=== PATIENT | female | born 1950 | race Caucasian/White ===

== ENCOUNTER → 2017-08-19 | Outpatient (CLI) | payer MEDICARE, OTHER | END | disposition home or self-care (01) | LOC: LAB.O 10:27 | PROVIDERS: ATTEND Nurse Practitioner Family | DX: E03.9 Hypothyroidism, unspecified (principal); I10 Essential (primary) hypertension; E78.2 Mixed hyperlipidemia ==

== ENCOUNTER → 2018-02-14 | Outpatient (CLI) | payer MEDICARE, OTHER | LOC: YCFC.O 11:25 | PROVIDERS: ATTEND Nurse Practitioner Family | DX: E03.9 Hypothyroidism, unspecified (principal); I10 Essential (primary) hypertension; E78.2 Mixed hyperlipidemia ==

== ENCOUNTER → 2018-08-15 | Outpatient (CLI) | payer MEDICARE, OTHER | LOC: LAB.O 14:08 | PROVIDERS: ATTEND Nurse Practitioner Family | DX: I10 Essential (primary) hypertension (principal); E78.2 Mixed hyperlipidemia; E55.9 Vitamin D deficiency, unspecified; R53.83 Other fatigue ==

== ENCOUNTER 2018-10-11 17:59 | Emergency (ER) | payer MEDICARE, OTHER ==
[2018-10-11 18:18] VITALS: TEMP 97.4
--- NOTE | 2018-10-11 18:20 | ED.PDOC ---
History of Present Illness - General Chief Complaint: Trauma Stated Complaint: s/p fall Time Seen by Provider: 10/11/18 18:17 Source: patient - History of Present Illness Initial Comments: SHE TOOK HER HER TRASH OUTSIDE AND SLIPPED AND FELL. NO LOC BUT HE INJURED HER HEAD, HAS SOME SEEPING OF BLOOD FROM A SCALP INJURY. SHE TAKES NO BLOOD THINNERS. Timing/Duration: 1 hour Severity: moderate Improving Factors: nothing Worsening Factors: nothing Associated Symptoms: denies symptoms Allergies/Adverse Reactions: Allergies NO KNOWN ALLERGY Allergy (Verified 10/11/18 18:21) Home Medications: Ambulatory Orders Unobtainable 10/11/18 Review of Systems - Review of Systems Constitutional: States: no symptoms reported EENTM: States: no symptoms reported Respiratory: States: no symptoms reported Cardiology: States: no symptoms reported Gastrointestinal/Abdominal: States: no symptoms reported Genitourinary: States: no symptoms reported Musculoskeletal: States: no symptoms reported Skin: States: other - SCALP INJURY Neurological: States: no symptoms reported Endocrine: States: no symptoms reported Hematologic/Lymphatic: States: no symptoms reported Past Medical History (General) - Patient Medical History Hx Stroke: No Hx Congestive Heart Failure: No Hx Hypertension: Yes Hx Diabetes: No Hx Cancer: Yes - Breast - Vaccination History Hx Influenza Vaccination: No Hx Pneumococcal Vaccination: Yes - Social History Hx Tobacco Use: No Family Medical History - Family History Mother Family History: Unknown Living Status: Unknown Physical Exam - Physical Exam General Appearance: Alert, Anxious, Well Developed, Well Groomed, Well Hydrated, Well Nourished Eye Exam: bilateral normal Ears, Nose, Throat: normal ENT inspection Neck: supple Respiratory: chest non-tender Cardiovascular/Chest: normal peripheral pulses, regular rate, rhythm, no edema, no gallop, no JVD, no murmur Peripheral Pulses: radial,right: 2+, radial,left: 2+ Gastrointestinal/Abdominal: normal bowel sounds, non tender, soft, no organomegaly, no pulsatile mass Rectal Exam: deferred Back Exam: normal inspection, no CVA tenderness, no vertebral tenderness Extremity: normal range of motion, non-tender, normal inspection Skin Exam: rash - HEMATOMA TO THE OCCIPUT Progress - Results/Orders Results/Orders: CT OF THE CERVICAL SPINE AND THE CT OF THE HEAD ARE NEGATIVE PER RADIOLOGIST. Departure - Departure Clinical Impression: Closed head injury Qualifiers: Encounter type: initial encounter Qualified Code(s): S09.90XA - Unspecified injury of head, initial encounter Repetitive strain injury of cervical spine Qualifiers: Encounter type: initial encounter Qualified Code(s): S16.1XXA - Strain of muscle, fascia and tendon at neck level, initial encounter Time of Disposition: 19:21 Disposition: Discharge to Home or Self Care Condition: Good Departure Forms: ED Discharge - Pt. Copy, Patient Portal Self Enrollment Instructions: DI for Trauma Diet: resume usual diet Referrals: Hailey Cannon NP [Primary Care Provider] - 1-2 Weeks Home Medications: Ambulatory Orders Unobtainable 10/11/18 Additional Instructions: TYLENOL NEEDED
--- NOTE | 2018-10-11 19:12 | CT ---
EXAM DESCRIPTION: CT CERVICAL SPINE CLINICAL HISTORY: HEAD AND NCK INJURY COMPARISON: None Available. TECHNIQUE: Contiguous axial images of the cervical spine were obtained followed by reconstruction images.This exam was performed according to our departmental dose-optimization program, which includes automated exposure control, adjustment of the mA and/or kV according to patient size and/or use of iterative reconstruction technique. FINDINGS: There are mild degenerative changes. There is no acute fracture or subluxation. The prevertebral soft tissues are within normal limits. IMPRESSION: No acute fracture or subluxation. Electronically signed by: Og Bunn 10/11/2018 7:10 PM [facility]
--- NOTE | 2018-10-11 19:14 | CT ---
EXAM DESCRIPTION: Head CLINICAL HISTORY: HEAD AND NCK INJURY COMPARISON: None Available TECHNIQUE: Contiguous axial CT images of the head were obtained. Coronal and sagittal reconstructions were created from the axial data. This exam was performed according to our departmental dose-optimization program, which includes automated exposure control, adjustment of the mA and/or kV according to patient size and/or use of iterative reconstruction technique. FINDINGS: Poorly defined foci of decreased attenuation do not exert significant mass effect on surrounding structures and are likely sequela of prior insult, most likely on the basis of small vessel disease. There is no evidence of acute mass, mass effect, midline shift or hemorrhage. The ventricles and extra-axial CSF spaces are unremarkable. The brain parenchyma appears otherwise normal for the patient's age. No acute abnormalities of the bones is seen. IMPRESSION: No acute intracranial abnormality. Electronically signed by: Og Bunn 10/11/2018 7:13 PM [facility]
[2018-10-11] MEDS ORDERED: cloNIDine HCL 0.1 MG TAB PO ONE (19:31)
[2018-10-11 20:14] VITALS: O2SAT 96
[2018-10-11 21:39] VITALS: BP 132/70
== END 2018-10-11 21:39 | disposition home or self-care (01) ==
LOC: ER 17:59
DX: S09.90XA Unspecified injury of head, initial encounter (principal); S16.1XXA Strain of muscle, fascia and tendon at neck level, initial encounter; S00.93XA Contusion of unspecified part of head, initial encounter; R21 Rash and other nonspecific skin eruption; I10 Essential (primary) hypertension; Z85.3 Personal history of malignant neoplasm of breast; W01.0XXA Fall on same level from slipping, tripping and stumbling without subsequent striking against object, initial encounter; Y93.89 Activity, other specified; Y92.89 Other specified places as the place of occurrence of the external cause

== ENCOUNTER → 2018-10-23 | Outpatient (CLI) | payer MEDICARE, OTHER | LOC: YCFC.O 15:44 | PROVIDERS: ATTEND Nurse Practitioner Family | DX: R50.9 Fever, unspecified (principal) ==

== ENCOUNTER 2019-02-13 09:25 | Emergency (ER) | payer MEDICARE, OTHER ==
--- NOTE | 2019-02-13 09:36 | ED.PDOC ---
History of Present Illness - General Chief Complaint: General Stated Complaint: cough /body aches Time Seen by Provider: 02/13/19 09:32 Source: patient Exam Limitations: no limitations - History of Present Illness Initial Comments: Camille Eisenberg 68 y/o female came to ER with non productive cough for the last one week and the last 2 days chest hurts during coughing episodes and with generalized body aches.Had seen primary Md 3 days was prescribed antibotics took it stating not better. Timing/Duration: 1 week Severity: moderate Improving Factors: nothing Worsening Factors: nothing Associated Symptoms: other - see hpi Allergies/Adverse Reactions: Allergies NO KNOWN ALLERGY Allergy (Verified 02/13/19 09:40) Home Medications: Ambulatory Orders Benzonatate Perles [Tessalon Perles] 200 mg PO BID #30 cap 02/13/19 Cefuroxime Axetil [Ceftin] 500 mg PO Q12H 5 Days #10 tablet 02/13/19 Metoprolol Succinate [Toprol Xl] 50 mg PO BID 02/13/19 Review of Systems - Review of Systems Constitutional: States: malaise EENTM: States: no symptoms reported Respiratory: States: see HPI Cardiology: States: no symptoms reported Gastrointestinal/Abdominal: States: no symptoms reported Genitourinary: States: no symptoms reported Skin: States: no symptoms reported Neurological: States: no symptoms reported Endocrine: States: no symptoms reported All other Systems: Reviewed and Negative, No Change from Baseline Past Medical History (General) - Patient Medical History Hx Stroke: No Hx Congestive Heart Failure: No Hx Hypertension: Yes Hx Diabetes: No Hx Cancer: Yes - Breast Surgical History: other - left mastectomy - Vaccination History Hx Influenza Vaccination: No Hx Pneumococcal Vaccination: Yes - Social History Hx Tobacco Use: No Family Medical History - Family History Mother Family History: Unknown Living Status: Unknown Hx Cardiac Disease: Yes - dad Father Hx Family Stroke: Yes Hx Cardiac Disease: Yes Physical Exam - Physical Exam General Appearance: Alert, Comfortable, No apparent distress Eye Exam: bilateral normal Ears, Nose, Throat: hearing grossly normal, normal ENT inspection Neck: non-tender, full range of motion, supple, normal inspection Respiratory: chest non-tender, decreased breath sounds, wheezing Cardiovascular/Chest: normal peripheral pulses, regular rate, rhythm, no murmur Peripheral Pulses: radial,right: 2+, radial,left: 2+ Gastrointestinal/Abdominal: normal bowel sounds, non tender, soft, no organomegaly Extremity: no pedal edema, no calf tenderness Neurologic: alert, oriented x 3 Skin Exam: normal color, warm/dry Lymphatic: no adenopathy Progress - Progress Progress: 02/13/19 12:31 Vital Signs - 8 hr 02/13/19 02/13/19 02/13/19 09:36 09:41 10:36 Temperature 99.4 F Pulse Rate Pulse Rate [R 73 73 74 finger] Respiratory 18 18 18 Rate Blood Pressure 200/92 194/106 [R arm] O2 Sat by Pulse 94 L 99 Oximetry 02/13/19 02/13/19 02/13/19 11:43 12:00 12:28 Temperature Pulse Rate 71 Pulse Rate [R 65 68 finger] Respiratory 18 15 20 Rate Blood Pressure 188/92 197/90 [R arm] O2 Sat by Pulse 95 95 99 Oximetry - Results/Orders Results/Orders: 02/13/19 09:55 SVN/Updraft Therapy .PRN 02/13/19 09:56 SVN/Updraft Therapy .ONCE 02/14/19 09:00 [facility] Daily Laboratory Results - last 24 hr 02/13/19 02/13/19 02/13/19 10:13 10:13 11:36 WBC 6.9 RBC 4.36 Hgb 14.2 Hct 42.5 MCV 97.3 MCH 32.6 H MCHC 33.5 RDW 13.8 Plt Count 201 MPV 7.2 L Absolute Neuts (auto) 4.20 Absolute Lymphs (auto) 2.00 Absolute Monos (auto) 0.70 Absolute Eos (auto) 0.10 Absolute Basos (auto) 0.00 Neutrophils % 60.8 Lymphocytes % 28.2 Monocytes % 9.6 H Eosinophils % 1.1 Basophils % 0.3 PT 12.6 H INR 1.26 H PTT (SP) 26.3 Sodium 138 Potassium 3.6 Chloride 103 Carbon Dioxide 25 Anion Gap 13.6 BUN 9 Creatinine 0.71 BUN/Creatinine Ratio 12.7 Random Glucose 107 H Serum Osmolality 274.8 L Calcium 8.9 Magnesium 1.9 Total Bilirubin 0.9 Direct Bilirubin 0.2 Indirect Bilirubin 0.7 AST 21 ALT 12 Alkaline Phosphatase 53 Creatine Kinase 33 CK-MB (CK-2) 0.5 CK-MB (CK-2) % Not Reportable Troponin I < 0.02 Serum Total Protein 7.7 Albumin 3.8 Urine Color Yellow Urine Appearance Clear Urine pH 7.5 Ur Specific [place] 1.020 Urine Protein Negative Urine Glucose (UA) Negative Urine Ketones Negative Urine Blood Trace-intact H Urine Nitrite Negative Urine Bilirubin Negative Urine Urobilinogen 0.2 Ur Leukocyte Esterase Negative Urine RBC 0 Urine WBC 0 Ur Epithelial Cells 0-1 Urine Bacteria 0 Group A Strep Rapid Positive Discuss all test result with patient - EKG/XRAY/CT XRAY: chest - no acute abnormalities Departure - Departure Clinical Impression: Malaise and fatigue, Strep throat Upper respiratory infection Qualifiers: URI type: unspecified URI Qualified Code(s): J06.9 - Acute upper respiratory infection, unspecified Hypertension Qualifiers: Hypertension type: unspecified Qualified Code(s): I10 - Essential (primary) hypertension Time of Disposition: 13:11 Disposition: Discharge to Home or Self Care Condition: Fair Departure Forms: ED Discharge - Pt. Copy, Patient Portal Self Enrollment Instructions: Strep Throat (DC) Referrals: Hailey Cannon NP [Primary Care Provider] - 1-2 Weeks Prescriptions: Benzonatate Perles [Tessalon Perles] 200 mg PO BID #30 cap Cefuroxime Axetil [Ceftin] 500 mg PO Q12H 5 Days #10 tablet Home Medications: Ambulatory Orders Benzonatate Perles [Tessalon Perles] 200 mg PO BID #30 cap 02/13/19 Cefuroxime Axetil [Ceftin] 500 mg PO Q12H 5 Days #10 tablet 02/13/19 Metoprolol Succinate [Toprol Xl] 50 mg PO BID 02/13/19 Additional Instructions: Continue with all home medications;Follow up with primary Md 19 Feb 2019 for recheck as needed
[2019-02-13] MEDS ORDERED: SODIUM CHLORIDE 0.9% 500ML 500 ML IVS ONE (09:37)
[2019-02-13] MEDS ORDERED: KETOROLAC TROMETHAMINE INJ 30 MG/ML VIAL IV ONE (09:38)
[2019-02-13] MEDS ORDERED: IPRATROPIUM/ALBUTEROL 3 ML VIAL NEB ONE (09:55)
[2019-02-13] MEDS ORDERED: methylPREDNISolone SODIUM SUC 125 MG/2 ML VIAL IV ONE (09:55)
[2019-02-13] MEDS ORDERED: BENZONATATE PERLES 100 MG CAP PO ONE (09:58)
--- NOTE | 2019-02-13 10:00 | RAD ---
EXAM DESCRIPTION: Chest,1 View CLINICAL HISTORY: 68 years Female, cough COMPARISON: Previous study February 24, 2010 TECHNIQUE: AP portable chest. FINDINGS: Heart size is normal with normal pulmonary vascularity. Patient is status post left mastectomy. No consolidating infiltrate. No pulmonary mass or worrisome nodule. No pneumothorax or pleural effusion. Bones are unremarkable. IMPRESSION: No acute process is identified in the chest. Electronically signed by: Judson Thrasher MD 02/13/2019 9:58 AM CDT
[2019-02-13] MEDS ORDERED: METOPROLOL TARTRATE 50 MG TAB PO ONE (10:39)
[2019-02-13] MEDS ORDERED: cefTRIAXone SODIUM 1 GM VIAL IM ONE (12:34)
[2019-02-13] MEDS ORDERED: hydrALAZINE HCl 20 MG/ML VIAL IV ONE (12:34)
[2019-02-13] MEDS ORDERED: LIDOCAINE 1% 10 ML VIAL INJ ONE (12:43)
[2019-02-13 14:05] VITALS: BP 133/81; TEMP 98; O2SAT 93
== END 2019-02-13 14:05 | disposition home or self-care (01) ==
LOC: ER 09:25
DX: J02.0 Streptococcal pharyngitis (principal); J06.9 Acute upper respiratory infection, unspecified; I10 Essential (primary) hypertension; Z79.899 Other long term (current) drug therapy; Z85.3 Personal history of malignant neoplasm of breast
CPT/HCPCS: 36415; 71045; 80048; 80076; 81001; 82550; 82553; 84484; 85025; 85610; 85730; 87502; 87880; 94640; J0360; J0696; J1885; J2930; J7040; J7620

== ENCOUNTER → 2019-08-10 | Outpatient (CLI) | payer MEDICARE, OTHER | LOC: YCFC.O 11:12 | PROVIDERS: ATTEND Nurse Practitioner | DX: I10 Essential (primary) hypertension (principal); E03.9 Hypothyroidism, unspecified; E78.5 Hyperlipidemia, unspecified ==

== ENCOUNTER → 2019-11-30 | Outpatient (CLI) | payer MEDICARE, OTHER | LOC: YCFC.O 10:02 | PROVIDERS: ATTEND Nurse Practitioner | DX: R31.21 Asymptomatic microscopic hematuria (principal) ==

== ENCOUNTER 2020-02-16 16:53 | Emergency (ER) | payer MEDICARE, OTHER ==
[2020-02-16] MEDS ORDERED: SODIUM CHLORIDE 0.9% (FLUSH) 10 ML SYG IV PRN (16:56)
--- NOTE | 2020-02-16 17:09 | ED.PDOC ---
History of Present Illness - General Chief Complaint: Neuro Symptoms/Deficits Stated Complaint: left sided numbness Time Seen by Provider: 02/16/20 16:56 Source: patient - History of Present Illness Initial Comments: 69 yo female with PMH of HTN who presents with cc of Left arm numbness. Reports was in normal state of health until right around 3:30 pm. States at that time began having a tingling sensation in her tongue. Over the next 15 minutes developed progressive numbness sensation which began in the Left shoulder and rapidly spread down to involve the entire LUE. Also reports some slurring of words and having minor difficulty getting words out. Denies any headache, confusion, other extremity weakness/numbness, dizziness, loss of balance, chest pain, dyspnea, cough, fever, abd pain, n/v/d. No reported hx of stroke. No reported hx of a-fib. Does not take blood thinners. No meds taken [employer] besides her usual morning medications this AM. Allergies/Adverse Reactions: Allergies NO KNOWN ALLERGY Allergy (Verified 02/13/19 09:40) Home Medications: Ambulatory Orders Metoprolol Succinate [Toprol Xl] 50 mg PO BID 02/13/19 Review of Systems - Review of Systems Review of Systems: 02/16/20 17:09 as per HPI All other Systems: Reviewed and Negative Past Medical History (General) - Patient Medical History Hx Stroke: No Hx Asthma: Yes - only reactive to cigarette smoke Hx of COPD: No Hx Congestive Heart Failure: No Hx Hypertension: Yes Hx Thyroid Disease: Yes - hypo Hx Diabetes: No Hx Cancer: Yes - Breast - Vaccination History Hx Tetanus, Diphtheria Vaccination: No Hx Influenza Vaccination: No Hx Pneumococcal Vaccination: Yes - Social History Hx Tobacco Use: No Hx Alcohol Use: No Hx Substance Use: No Hx Substance Use Treatment: No Hx Depression: No - Female History Patient : No Family Medical History - Family History Mother Family History: Unknown Living Status: Unknown Hx Cardiac Disease: Yes - dad Father Hx Family Stroke: Yes Hx Cardiac Disease: Yes Physical Exam - Physical Exam General Appearance: Alert, Comfortable, No apparent distress Eye Exam: bilateral normal Ears, Nose, Throat: hearing grossly normal, normal ENT inspection, normal pharynx Neck: non-tender, full range of motion, supple, normal inspection Respiratory: lungs clear, normal breath sounds, no respiratory distress, no accessory muscle use Cardiovascular/Chest: normal peripheral pulses, regular rate, rhythm, no edema, no gallop, no JVD, no murmur Peripheral Pulses: radial,right: 2+, radial,left: 2+ Gastrointestinal/Abdominal: non tender, soft, no organomegaly Back Exam: normal inspection, no CVA tenderness, no vertebral tenderness Extremity: normal range of motion, non-tender, normal inspection, no pedal edema, no calf tenderness, normal capillary refill Neurologic: alert, oriented x 3, abnormal hat block bench hand II-XII - Slight slurring of speech but can understand >95% of words spoken. Minimal trouble forming words. No inappropriate words or incomprehensible sounds. No noted facial droop. Slightly decreased sensation to light touch to Left face. Moderate decreased sensation to light touch throughout LUE. 5/5 strength throughout, no noted motor drift in all 4 extremities. Skin Exam: normal color, warm/dry Progress - Progress Progress: 02/16/20 17:11 Stroke-like symptoms -concern for acute ischemic vs hemorrhagic CVA. Consider also TIA, complex migraine, ACS, other -stat CT head, cardiac work-up, labs -place PIV -initial NIH score of 3 -obtain CT head, urgent consult to neurology once read is back. Pt is within tPA window. 02/16/20 18:20 -CT head no acute processes. Reassess pt - exam unchanged, NIH 3. BP persistently elevated >200s systolic despite labetalol 20 mg IV. Labs remain pending. Spoke with neurology Dr. Porter at [facility] who is recommending no tPA given low NIH score and markedly elevated BP and advises transfer to [facility]. Spoke with Dr. Angeles in the ED who accepts for transfer, will go via ground EMS. Per Dr. Porter, will allow for permissive HTN, only treat for systolic BP >220. Will give ASA 324 mg PO x1. -Spoke with pt who is in agreement with the above plan. 02/16/20 18:43 -Labs reviewed, largely unremarkable. Trop neg. Manuel Malloy MD Billing #[id number] 02/16/20 16:56 Sodium Chloride 0.9% (Flush) [Saline Flush Syringe] 10 ml IV PRN PRN UA [URINALYSIS] Stat 02/16/20 17:00 EKG STAT 02/17/20 09:00 Pulse Ox Daily Laboratory Results - last 24 hr 02/16/20 02/16/20 02/16/20 17:45 17:45 17:45 WBC 7.1 RBC 4.25 Hgb 13.5 Hct 40.1 MCV 94.4 MCH 31.7 H MCHC 33.6 RDW 14.6 H Plt Count 193 MPV 7.4 Absolute Neuts (auto) 3.50 Absolute Lymphs (auto) 2.80 Absolute Monos (auto) 0.50 Absolute Eos (auto) 0.30 Absolute Basos (auto) 0.00 Neutrophils % 49.8 Lymphocytes % 39.6 Monocytes % 6.5 Eosinophils % 3.7 Basophils % 0.4 PT 10.4 INR 1.05 PTT (SP) 23.9 Sodium 139 Potassium 3.8 Chloride 107 Carbon Dioxide 24 Anion Gap 11.8 L BUN 17 Creatinine 0.78 BUN/Creatinine Ratio 21.8 H Random Glucose 99 Serum Osmolality 279.1 Calcium 9.3 Total Bilirubin 0.8 AST 26 ALT 19 Alkaline Phosphatase 56 Troponin I B-Natriuretic Peptide 216.0 H* Serum Total Protein 7.5 Albumin 4.1 Globulin 3.4 Albumin/Globulin Ratio 1.2 02/16/20 17:45 WBC RBC Hgb Hct MCV MCH MCHC RDW Plt Count MPV Absolute Neuts (auto) Absolute Lymphs (auto) Absolute Monos (auto) Absolute Eos (auto) Absolute Basos (auto) Neutrophils % Lymphocytes % Monocytes % Eosinophils % Basophils % PT INR PTT (SP) Sodium Potassium Chloride Carbon Dioxide Anion Gap BUN Creatinine BUN/Creatinine Ratio Random Glucose Serum Osmolality Calcium Total Bilirubin AST ALT Alkaline Phosphatase Troponin I < 0.02 B-Natriuretic Peptide Serum Total Protein Albumin Globulin Albumin/Globulin Ratio - EKG/XRAY/CT EKG: Sinus - NSR, HR 65, no ST elevs or q waves, axis & intervals normal, no prior EKG for comparison XRAY: chest - no acute processes Departure - Departure Clinical Impression: Ischemic stroke without coma Time of Disposition: 18:27 Disposition: Transfer to Hospital Condition: Serious Departure Forms: ED Discharge - Pt. Copy, Patient Portal Self Enrollment Referrals: Adamaris Rios FNP [Primary Care Provider] - 1-2 Weeks Home Medications: Ambulatory Orders Metoprolol Succinate [Toprol Xl] 50 mg PO BID 02/13/19 Critical Care Note - Critical Care Note Total Time (mins): 45 Comments: Critical Care Time: Upon my evaluation, this patient had a high probability of life-threatening deterioration due to acute ischemic stroke, which required my direct attention, intervention, and management. I have provided 45 minutes of critical care time exclusive of separately billable procedures. My time included: direct patient care, review of labs and radiology, obtaining history from and counseling the patient, discussion with consultants and/or other wi dical personnel, documentation, and monitoring for potential decompensation. Transfer to Outside Facility - Transfer Information Decision to Transfer Date: 02/16/20 Decision to Transfer Time: 18:26 Reason for Transfer: required specialist not available - neurology Accepting Provider:: Dr. Angeles Accepting Facility: [facility]
[2020-02-16 17:11] VITALS: TEMP 97.1
--- NOTE | 2020-02-16 17:37 | CT ---
EXAM DESCRIPTION: Head CLINICAL HISTORY: 69 years Female stroke like symptoms COMPARISON: None TECHNIQUE: Images were obtained in axial, sagittal, and coronal planes. This exam was performed according to our departmental dose-optimization program which includes use of Automated Exposure Control, adjustment of the mA and/or kV according to patient size and/or use of iterative reconstruction technique. FINDINGS: Ventricular system appears normal. No abnormal areas of increased or decreased attenuation are seen involving the brain parenchyma. No extra-axial fluid collections noted. Basal ganglionic calcifications bilaterally likely physiologic in nature. No evidence for skull fracture. Symmetric aeration mastoid air cells bilaterally. Unremarkable paranasal sinuses. IMPRESSION: No acute intracranial abnormality. No evidence for hemorrhage, mass lesion, or large acute infarction. Electronically signed by: Madonna Rangel MD 02/16/2020 5:35 PM CDT
--- NOTE | 2020-02-16 17:42 | RAD ---
EXAM: Chest,1 View CLINICAL INDICATION: 69-year-old female with strokelike symptoms. TECHNIQUE: Single view, AP portable chest was obtained. COMPARISON: 02/13/2019. FINDINGS: Unremarkable cardiac and mediastinal silhouette. Heart size is normal. Lungs are clear without focal opacity, pneumothorax or pleural effusions. The visualized bones are within normal limits. IMPRESSION: No acute cardiopulmonary abnormalities. Electronically signed by: Shae Rubio MD 02/16/2020 5:40 PM CDT
[2020-02-16] MEDS ORDERED: LABETALOL INJ 5 MG/ML VIAL IV ONE (17:50)
[2020-02-16] MEDS ORDERED: MORPHINE SULFATE INJ 10 MG/ML VIAL IV ONE (19:04)
[2020-02-16 19:19] VITALS: BP 181/79; O2SAT 96
[2020-02-16] MEDS ORDERED: ASPIRIN (CHEWABLE) 81 MG TAB PO ONE (19:36)
== END 2020-02-16 19:50 | disposition short-term general hospital (02) ==
LOC: ER 16:53
DX: I63.9 Cerebral infarction, unspecified (principal); I10 Essential (primary) hypertension; E03.9 Hypothyroidism, unspecified

== ENCOUNTER 2020-04-28 05:21 | Day surgery (SDC) | payer MEDICARE, OTHER ==
[2020-04-28] MEDS ORDERED: TROP1%/CYCLOPEN 1%/PHENYL 2.5% DROPS ONE (05:35)
[2020-04-28] MEDS ORDERED: MOXIFLOXACIN HCL (OPHTH) 1 DROP DROPS ONE (05:35)
[2020-04-28] MEDS ORDERED: PROPARACAINE 0.5% OPHTH SOL 15 ML BTTL ONE (05:35)
[2020-04-28] MEDS ORDERED: SODIUM CHLORIDE 0.9% (FLUSH) 10 ML SYG ONE (05:44)
[2020-04-28] MEDS: PROPARACAINE 0.5% OPHTH SOL 15 ML BTTL LEFT_EYE ONE (08:16)
[2020-04-28] MEDS ORDERED: MIDAZOLAM INJ 2 MG/2 ML VIAL ONE (08:18)
[2020-04-28] MEDS: LIDOCAINE 1% MPF 2 ML VIAL INJ ONE ×2 (08:25→08:28)
[2020-04-28] MEDS: DEXAMETHASONE 0.1% OPHTH SOL 1 DROP LEFT_EYE ONE ×2 (08:25→08:40)
[2020-04-28] MEDS: MOXIFLOXACIN HCL (OPHTH) 1 DROP DROPS LEFT_EYE ONE ×2 (08:25→08:40)
[2020-04-28] MEDS: TOBRAMYCIN SULF 0.3 % OPHT SOL 1 DROP LEFT_EYE ONE ×2 (08:26→08:40)
[2020-04-28] MEDS: BRIMONIDINE 0.2% OPHTH DROPS LEFT_EYE ONE ×2 (08:26→08:40)
== END 2020-04-28 09:26 | disposition home or self-care (01) ==
LOC: AMB 05:21
PROVIDERS: ATTEND Ophthalmology
DX: H25.13 Age-related nuclear cataract, bilateral (principal); I10 Essential (primary) hypertension; E07.9 Disorder of thyroid, unspecified; Z79.899 Other long term (current) drug therapy
CPT/HCPCS: 00142; 66984; A4216; J2250

== ENCOUNTER 2020-05-19 05:35 | Day surgery (SDC) | payer MEDICARE, OTHER ==
[2020-05-19] MEDS ORDERED: PROPARACAINE 0.5% OPHTH SOL 15 ML BTTL ONE (05:43)
[2020-05-19] MEDS ORDERED: TROP1%/CYCLOPEN 1%/PHENYL 2.5% DROPS ONE (05:43)
[2020-05-19] MEDS ORDERED: MOXIFLOXACIN HCL (OPHTH) 1 DROP DROPS ONE (05:43)
[2020-05-19] MEDS ORDERED: PROPARACAINE 0.5% OPHTH SOL 15 ML BTTL RIGHT_EYE ONE (08:08)
[2020-05-19] MEDS ORDERED: MIDAZOLAM INJ 2 MG/2 ML VIAL ONE (08:17)
[2020-05-19] MEDS ORDERED: LIDOCAINE 1% MPF 2 ML VIAL INJ ONE (08:23)
[2020-05-19] MEDS ORDERED: MOXIFLOXACIN HCL (OPHTH) 1 DROP DROPS RIGHT_EYE ONE (08:33)
[2020-05-19] MEDS ORDERED: TOBRAMYCIN SULF 0.3 % OPHT SOL 1 DROP RIGHT_EYE ONE (08:39)
[2020-05-19] MEDS ORDERED: BRIMONIDINE 0.2% OPHTH DROPS RIGHT_EYE ONE (08:39)
[2020-05-19] MEDS ORDERED: DEXAMETHASONE 0.1% OPHTH SOL 1 DROP RIGHT_EYE ONE (08:39)
== END 2020-05-19 09:20 | disposition home or self-care (01) ==
LOC: AMB 05:35
PROVIDERS: ATTEND Ophthalmology
DX: H25.11 Age-related nuclear cataract, right eye (principal); I10 Essential (primary) hypertension; Z79.899 Other long term (current) drug therapy; Z85.3 Personal history of malignant neoplasm of breast
CPT/HCPCS: 00142; 66984; J2250

== ENCOUNTER → 2020-07-22 | Outpatient (CLI) | payer MEDICARE, OTHER | LOC: YCFC.O 10:16 | PROVIDERS: ATTEND Family Medicine | DX: E03.9 Hypothyroidism, unspecified (principal); E78.2 Mixed hyperlipidemia; I10 Essential (primary) hypertension ==

== ENCOUNTER → 2020-09-30 | Outpatient (CLI) | payer MEDICARE, OTHER | LOC: LAB.O 09:26 | PROVIDERS: ATTEND Family Medicine | DX: E03.9 Hypothyroidism, unspecified (principal) ==